=== PATIENT | female | born 1980 ===

== ENCOUNTER 2024-08-17 03:15 | Emergency (ER) | payer SELFPAY ==
[2024-08-17] MEDS ORDERED: traMADol HCl 50 MG TAB ONE (05:57)
[2024-08-17] MEDS ORDERED: Ibuprofen 200 MG TAB ONE (07:45)
== END 2024-08-17 10:40 ==
LOC: CSHERS 03:15
DX: R45.851 Suicidal ideations (principal); F17.290 Nicotine dependence, other tobacco product, uncomplicated
CPT/HCPCS: 99285